=== PATIENT | male | born 1975 | race Caucasian/White ===

== ENCOUNTER 2018-07-06 17:11 | Emergency (ER) | END 2018-07-06 18:50 | disposition home or self-care (01) ==

== ENCOUNTER 2019-03-24 17:17 | Emergency (ER) | payer SELFPAY ==
[~2019-03-24] VITALS: Ht 175.3 cm; Wt 79.2 kg
[~2019-03-24 17:17] MED LIST: NAPR-985 PO
[2019-03-24 17:43] VITALS: Ht 175.3 cm; Wt 79.2 kg
[2019-03-24] MEDS ORDERED: IBUPROFEN 600 MG TAB PO ONE (20:00)
--- NOTE | 2019-03-24 20:16 | ERD ---
ER Documentation Chief Complaint Chief Complaint RIGHT SHOULDER PAIN S/P FALL 1 WEEK AGO. CMS INTACT. HPI 43-year-old male presents to the emergency department complaining of right shoulder pain intermittent for the past 2 days. He states he was working when he accidentally slipped and fell forward approximately 2 feet striking his right shoulder onto the wall. Pain is intermittent, 7/10 severity, not alleviated by any medication at home. He denies any head injury, loss of consciousness, or other symptoms at this time. ROS All systems reviewed and are negative except as per history of present illness. Medications Home Meds Active Scripts Ibuprofen* (Motrin*) 600 Mg Tab, 600 MG PO Q6, #30 TAB Prov:LYSSA QUINONES PA-C 03/24/19 Naproxen* (Naprosyn*) 500 Mg Tablet, 500 MG PO BID PRN for PAIN AND/OR INFLAMMATION, #30 TAB Prov:LYSSA QUINONES PA-C 07/06/18 Allergies Allergies: Coded Allergies: No Known Allergy (Unverified , 07/06/18) PMhx/Soc Medical and Surgical Hx: pt denies Medical Hx, pt denies Surgical Hx Hx Alcohol Use: Yes (OCCASIONAL) Hx Substance Use: No Hx Tobacco Use: No Smoking Status: Never smoker FmHx Family History: No diabetes Physical Exam Vitals Physical Exam Const: No acute distress Head: Atraumatic Eyes: Normal Conjunctiva ENT: Normal External Ears, Nose and Mouth. Neck: Full range of motion. No meningismus. Resp: No respiratory distress. Skin: No petechiae or rashes Back: No midline or flank tenderness Ext: No cyanosis, or edema. Tenderness palpation of the right posterior shoulder. No crepitus. Slightly limited range of motion secondary to pain. Patient is neurovascularly intact to the right upper extremity. 2+ radial pulses noted. Neur: Awake and alert Psych: Normal Mood and Affect Results 24 hrs Current Medications Medications Dose Sig/Selina Start Time Status Last (Trade) Ordered Route PRN Stop Time Admin Dose Reason Admin Ibuprofen 600 mg ONCE ONCE 03/24/19 DC 03/24/19 (Motrin) PO 20:00 19:48 03/24/19 20:[address] [address] Radiology Main Line: [phone] DIAGNOSTIC IMAGING REPORT Patient: RUPERTO ZULETA : 1975 Age: 43 Sex: M MR #: [id number] DOS: 03/24/19 0000 Ordering MD: LYSSA QUINONES PA-C Location: [facility] Room/Bed: PROCEDURE: DX Shoulder CLINICAL INDICATION: 43-year-old. Acute trauma. Right shoulder pain. TECHNIQUE: 2-3 views. COMPARISON: None. FINDINGS: Osseous structures: Normal bone mineralization. No acute fracture. No lytic or blastic changes. Joint space: Intact glenohumeral joint. There is slight malalignment of the acromioclavicular joint. Soft tissues: No radiopaque foreign body or soft tissue gas. IMPRESSION: 1. Slight malalignment of the acromioclavicular joint. This may be acute or chronic. 2. No acute fracture. RPTAT: [facility] Physician Alberto Date Time Electronically viewed and signed by Physician Alberto on 03/24/2019 20:36 RS/ CC: LYSSA QUINONES PA-C [id number] Procedures/MDM 43-year-old male presents the emergency department complaining of right shoulder pain after fall. X-rays show no evidence of fracture. Street, physical exam, work-up most consistent with contusion of the right shoulder. Patient's extremity symptoms have stabilized while they have been evaluated in the department and are appropriate for outpatient follow up. No evidence of compartment syndrome, neurologic injury, vascular injury, open joint, open fracture, tendon laceration, or foreign body. No evidence of life-threatening pathology at time of discharge. Pt/family in agreement with discharge plan/diagnosis. Pt/family advised to return immediately with any new or worsening symptoms. Follow-up with primary care physician within the next 1-2 days. Departure Diagnosis: Primary Impression: Shoulder injury Encounter type: initial encounter Laterality: right Qualified Codes: S49.91XA - Unspecified injury of right shoulder and upper arm, initial encounter Condition: Fair Additional Instructions: Follow up with your PCP within the next 1-3 days for a repeat evaluation. If you require a referral to a specialist, your Primary Care Provider may be able to provide this for you. In most patient cases, a referral is not required. If you have further questions regarding this matter, please ask your Primary Care Provider. Return the the emergency department immediately if symptoms worsen or change. If you have any questions regarding medications, ask your pharmacist or us before you leave. If any adverse reactions, occur while taking your medications, discontinue the treatment and return to the emergency department immediately. If any new or worsening symptoms, uncontrolled fevers, or other unexplained symptoms occur, return to the emergency department immediately. Take your medications as directed, and complete the entire course of treatment. LYSSA QUINONES PA-C Mar 24, 2019 20:15
[2019-03-24] MEDS ORDERED: IBUP-1542 PO (20:49)
[2019-03-24 21:05] VITALS: BP 121/84; PULSE 65; RESP 18
== END 2019-03-24 21:10 | disposition home or self-care (01) ==
LOC: FTE 17:17
DX: S49.91XA Unspecified injury of right shoulder and upper arm, initial encounter (principal); W01.198A Fall on same level from slipping, tripping and stumbling with subsequent striking against other object, initial encounter; Y92.9 Unspecified place or not applicable